=== PATIENT | female | born 1965 | race Caucasian/White ===

== ENCOUNTER 2019-09-27 13:59 | Emergency (ER) | payer OTHER ==
[~2019-09-27] VITALS: Ht 175.3 cm; Wt 115.7 kg
[2019-09-27] MEDS ORDERED: LIPITOR10 MG PO (14:09)
[2019-09-27] MEDS ORDERED: COZAAR 25 MG TA25 M2 PO (14:09)
[2019-09-27] MEDS ORDERED: ASA81BEC PO (14:10)
[2019-09-27] MEDS ORDERED: AMBIEN5 MG PO (14:10)
[2019-09-27] MEDS ORDERED: HYDROCHLOROTHIA25 M2 PO (14:10)
[2019-09-27] MEDS ORDERED: ATIVAN0.5 M1 PO (14:11)
[2019-09-27 14:47] LABS: ABSOLUTE NEUTROPHILS 5.3 thou/uL (1.4-8.2); BASOPHILS 1.4 % (0.0-2.0); EOSINOPHILS 1.8 % (0.0-3.0); HEMATOCRIT 43.5 % (37.0-47.0); LYMPHOCYTES 29.7 % (24.0-44.0); MCH 30.5 pg (26.0-34.0); MCHC 34.6 g/dL (28.0-37.0); MCV 88.1 fL (80.0-100.0); MONOCYTES 4.9 % (1.0-8.0); PLATELET COUNT 197 thou/uL (150-400); POLYS 62.2 % (36.0-66.0); RBC 4.94 mil/uL (4.20-5.00); RDW 15.2 % (10.5-14.5); WBC 8.5 thou/uL (4.0-11.0)
[2019-09-27 14:47] LABS: URINE BILIRUBIN NEGATIVE (Negative); URINE BLOOD TRACE (Negative); URINE CLARITY CLEAR; URINE COLOR YELLOW; URINE GLUCOSE-RANDOM* NEGATIVE (Negative); URINE KETONES NEGATIVE (Negative); URINE LEUKOCYTES-REFLEX NEGATIVE (Negative); URINE NITRITE-REFLEX NEGATIVE (Negative); URINE PROTEIN (DIPSTICK) NEGATIVE (Negative); URINE SPECIFIC GRAVITY <= 1.005 (1.005-1.035); URINE UROBILINOGEN 0.2 E.U./dl (0.2-1.0)
[2019-09-27 14:55] LABS: CALCIUM 9.4 mg/dL (8.5-10.1); CREATININE 0.9 mg/dL (0.6-1.0); POTASSIUM 3.4 mmol/L (3.5-5.1)
[2019-09-27 15:01] LABS: ALBUMIN 3.8 g/dL (3.4-5.0); TOTAL BILIRUBIN 0.7 mg/dL (<0.1-1.0); TOTAL PROTEIN 7.4 g/dL (6.4-8.2)
[2019-09-27] MEDS ORDERED: NORFLEX100 MG PO (17:23)
[2019-09-27] MEDS ORDERED: NAPROSYN500 MG PO (17:23)
[2019-09-27 17:28] VITALS: BP 116/74
== END 2019-09-27 17:31 | disposition home or self-care (01) ==
LOC: ER 13:59
PROVIDERS: Emergency Medicine
DX: M54.5 Low back pain (principal); F17.210 Nicotine dependence, cigarettes, uncomplicated; Z79.82 Long term (current) use of aspirin; Z79.899 Other long term (current) drug therapy; Z95.1 Presence of aortocoronary bypass graft; Z90.710 Acquired absence of both cervix and uterus